=== PATIENT | female | born 1995 | race Caucasian/White ===

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

== ENCOUNTER 2017-01-12 23:17 | Emergency (ER) | payer SELFPAY ==
[2017-01-12 23:34] VITALS: BP 108/70; PULSE 57; RESP 20; TEMP 98.3; O2SAT 97
--- NOTE | 2017-01-13 00:10 | C.PDOC ---
History Of Present Illness Patient is a 21 year old female who presents to the ER with a complaint of light brown vaginal discharge w/ foul ordered for the past 3-4 weels. Patient notes her period ended 2 days ago and denies itching, vaginal pain, abdominal pain or dysuria. Time Seen by Provider: 01/12/17 23:40 Chief Complaint (Nursing): Female Genitourinary History Per: Patient History/Exam Limitations: no limitations Onset/Duration Of Symptoms: Days (3-4 weeks) Current Symptoms Are (Timing): Still Present Quality Of Discomfort: Other (No pain) Associated Symptoms: Other ((+) vaginal discharge. (-) for itching, vaginal pain , abdominal pain ). denies: Urinary Symptoms Alleviating Factors: None Recent travel outside of the [place]: No Abnormal Vaginal Bleeding: No Past Medical History Reviewed: Historical Data, Nursing Documentation, Vital Signs Vital Signs: Last Vital Signs Temp 98.3 F 01/12/17 23:30 Pulse 57 L 01/12/17 23:30 Resp 20 01/12/17 23:30 BP 108/70 01/12/17 23:30 Pulse Ox 97 01/13/17 06:05 - Medical History PMH: No Chronic Diseases Surgical History: No Surg Hx Family History: States: Unknown Family Hx - Social History Hx Alcohol Use: No Hx Substance Use: No - Immunization History Hx Influenza Vaccination: Yes Review Of Systems Gastrointestinal: Negative for: Abdominal Pain Genitourinary: Positive for: Vaginal Discharge. Negative for: Dysuria, Pelvic Pain Skin: Negative for: Other (Itching) Physical Exam - Physical Exam Appears: Non-toxic, No Acute Distress Skin: Normal Color, Warm, Dry Head: Atraumatic, Normacephalic Eye(s): bilateral: Normal Inspection, PERRL, EOMI Oral Mucosa: Moist Chest: Symmetrical, No Tenderness Cardiovascular: Rhythm Regular, No Friction Rub, No Murmur Respiratory: Normal Breath Sounds, No Rales, No Rhonchi, No Wheezing Gastrointestinal/Abdominal: Soft, No Tenderness Pelvic: Normal External Exam, No Vaginal Bleeding, No Cervical Motion Tenderness , No Adnexal Tenderness, Other (Scant brown discharge, malodorous.) Extremity: Normal ROM, No Tenderness, No Swelling ED Course And Treatment O2 Sat by Pulse Oximetry: 97 (Room air) Pulse Ox Interpretation: Normal Progress Note: Flagyl administered. Disposition - Disposition [facility]errals: [facility] [Outside] [facility] [Outside] Disposition: HOME/ ROUTINE Disposition Time: 00:35 Condition: GOOD Additional Instructions: Follow up with the medical doctor within 1-2 days. return if worsened. Prescriptions: metroNIDAZOLE [Flagyl] 500 mg PO BID #14 tab Instructions: Bacterial Vaginosis (ED) - Clinical Impression Clinical Impression: Bacterial vaginosis - Scribe Statement The provider has reviewed the documentation as recorded by the Scribelvis Méndez All medical record entries made by the Alirioibelvis were at my direction and personally dictated by me. I have reviewed the chart and agree that the record accurately reflects my personal performance of the history, physical exam, medical decision making, and the department course for this patient. I have also personally directed, reviewed, and agree with the discharge instructions and disposition.
[2017-01-13 00:28] LABS: RBC URINE 2 /hpf (0-3); URINE BILIRUBIN NEGATIVE (NEGATIVE); URINE BLOOD NEGATIVE (NEGATIVE); URINE COLOR Yellow (YELLOW); URINE GLUCOSE (UA) NORMAL (Normal); URINE KETONE NEGATIVE (NEGATIVE); URINE LEUKOCYTE ESTERASE NEG Leu/uL (Negative); URINE PROTEIN NEGATIVE (NEGATIVE); URINE UROBILINOGEN NORMAL mg/dL (0.2-1.0); WBC URINE 1 /hpf (0-5)
== END 2017-01-13 00:39 | disposition home or self-care (01) ==
LOC: C.ER 23:17
DX: N76.0 Acute vaginitis (principal)

== ENCOUNTER 2017-03-21 20:58 | Emergency (ER) | payer SELFPAY ==
[2017-03-21 21:12] VITALS: BP 115/70; PULSE 66; RESP 16; TEMP 97.4; O2SAT 99
--- NOTE | 2017-03-21 21:31 | C.PDOC ---
History Of Present Illness 22 y/o female presents to the ER c/o irritation and swelling to the left side of the labia for 3 days. Patient notes having unprotected sexual intercourse a month prior. Symptom is described as itchy and painful at the same time with whitish discharge that has a foul odor. Denies dysuria, menstrual irregularities , fever, chills, nausea, vomiting, abdominal pain, or any other complaints. Time Seen by Provider: 03/21/17 21:18 Chief Complaint (Nursing): Female Genitourinary History Per: Patient History/Exam Limitations: no limitations Onset/Duration Of Symptoms: Days (3) Current Symptoms Are (Timing): Still Present Severity: Mild Quality Of Discomfort: Other (Irritation and swelling) Associated Symptoms: denies: Fever, Chills, Nausea, Vomiting Recent travel outside of the [place]: No Additional History Per: Patient Past Medical History Reviewed: Historical Data, Nursing Documentation, Vital Signs Vital Signs: Last Vital Signs Temp 97.4 F L 03/21/17 21:08 Pulse 66 03/21/17 21:08 Resp 16 03/21/17 21:08 BP 115/70 03/21/17 21:08 Pulse Ox 99 03/21/17 21:51 Family History: States: Unknown Family Hx - Social History Hx Alcohol Use: Yes Hx Substance Use: No - Immunization History Hx Influenza Vaccination: Yes Review Of Systems Except As Marked, All Systems Reviewed And Found Negative. Constitutional: Negative for: Fever, Chills Gastrointestinal: Negative for: Nausea, Vomiting, Abdominal Pain Genitourinary: Positive for: Vaginal Discharge. Negative for: Dysuria Physical Exam - Physical Exam Appears: Non-toxic, No Acute Distress Skin: Warm, Dry Head: Atraumatic, Normacephalic Gastrointestinal/Abdominal: Soft, No Tenderness Back: Normal Inspection, No CVA Tenderness Pelvic: No Vaginal Bleeding, No Vaginal Discharge, No Cervical Motion Tenderness , No Other (No swelling or lesion of the labium) Neurological/Psych: Oriented x3, Normal Speech, Normal Cognition ED Course And Treatment O2 Sat by Pulse Oximetry: 99 (RA) Pulse Ox Interpretation: Normal Progress Note: Vaginal cultures sent Medical Decision Making Medical Decision Making: Impression: 22 y/o female c/o irritation and swelling to the left side of the labia for 3 days. Plans: * Chlamydia/GC * Culture/GC Disposition - Disposition Referrals: [facility] at [facility] [Outside] Disposition: HOME/ ROUTINE Disposition Time: 21:30 Condition: STABLE Additional Instructions: Follow up with your sales professional if symptoms persist. Instructions: Vaginitis (ED) Forms: [employer] (Iraqi) - Clinical Impression Clinical Impression: Vaginitis - Scribe Statement The provider has reviewed the documentation as recorded by the Scribe Ruth french All medical record entries made by the Scribe were at my direction and personally dictated by me. I have reviewed the chart and agree that the record accurately reflects my personal performance of the history, physical exam, medical decision making, and the department course for this patient. I have also personally directed, reviewed, and agree with the discharge instructions and disposition.
== END 2017-03-21 21:37 | disposition home or self-care (01) ==
LOC: C.ER 20:58
DX: N76.0 Acute vaginitis (principal)

== ENCOUNTER 2017-06-30 13:52 | Emergency (ER) | payer OTHER ==
[2017-06-30 14:20] VITALS: BMI 27.6
[2017-06-30 14:23] VITALS: RESP 18
[2017-06-30] MEDS ORDERED: Lactated Ringer's 1,000 ML IV STA ×2 (14:53→14:55)
[2017-06-30 15:16] LABS: BASO % 0.3 % (0.0-2.0); EOS % 0.1 % (0.0-4.0); HEMATOCRIT 43.9 % (34.0-47.0); LYMPH # 2.1 K/uL (1.0-4.3); LYMPH % 22.5 % (20.0-40.0); MEAN CELL VOLUME 89.4 fL (81.0-99.0); MEAN CORPUSCULAR HEMOGLOBIN 30.2 pg (27.0-31.0); MEAN CORPUSCULAR HGB CONC 33.8 g/dL (33.0-37.0); MEAN PLATELET VOLUME 9.3 fL (7.2-11.7); MONO # 0.3 K/uL (0.0-0.8); MONO % 3.5 % (0.0-10.0); RED CELL DISTRIBUTION WIDTH 12.6 % (11.5-14.5); WHITE BLOOD COUNT 9.4 K/uL (4.8-10.8)
[2017-06-30] MEDS ORDERED: Sodium Chloride 0.9% 1,000 ML ONE (15:17)
[2017-06-30 15:30] LABS: ALB/GLOB RATIO 1.3 (1.0-2.1); ALKALINE PHOSPHATASE 80 U/L (38-126); ALT/SGPT 29 U/L (9-52); AST/SGOT 19 U/L (14-36); BILIRUBIN,TOTAL 0.8 mg/dL (0.2-1.3); BLOOD UREA NITROGEN 12 mg/dL (7-17); CALCIUM 8.8 mg/dl (8.6-10.4); CARBON DIOXIDE 25 mmol/L (22-30); CHLORIDE 106 mmol/L (98-107); GFR AFRICAN-AMERICAN > 60; GLUCOSE,RANDOM 109 mg/dL (65-105); POTASSIUM 3.9 mmol/L (3.6-5.2); SODIUM 142 mmol/L (132-148); TOTAL PROTEIN 8.1 g/dL (6.3-8.3)
[2017-06-30] MEDS ORDERED: Lactated Ringer's 1,000 ML ONE (16:03)
[2017-06-30 16:37] VITALS: BP 100/63; PULSE 75; TEMP 98; O2SAT 97
--- NOTE | 2017-06-30 17:16 | C.PDOC ---
History Of Present Illness 22 y/o female presents to the ED c/o mild diffuse abdominal pain for 2 days and 2 episodes of vomiting today. The patient stated that she began to vomit after eating a burger in a [employer]. The boyfriend of the patient also states that after eating a couple of bites from the same began to feel nauseous after .The patient denies no blood in the vomit, dizziness, headaches, fever, and diarrhea. Chief Complaint (Nursing): Abdominal Pain History Per: Patient History/Exam Limitations: no limitations Onset/Duration Of Symptoms: Hrs Current Symptoms Are (Timing): Still Present Associated Symptoms: Nausea, Vomiting. denies: Fever, Chills, Diarrhea Past Medical History Reviewed: Historical Data, Nursing Documentation, Vital Signs Vital Signs: Last Vital Signs Temp 98 F 06/30/17 16:36 Pulse 75 06/30/17 16:36 Resp 18 06/30/17 16:36 BP 100/63 06/30/17 16:36 Pulse Ox 97 06/30/17 17:21 Surgical History: No Surg Hx Family History: States: No Known Family Hx - Social History Hx Alcohol Use: Yes Hx Substance Use: No - Immunization History Hx Tetanus Toxoid Vaccination: No Hx Influenza Vaccination: No Hx Pneumococcal Vaccination: No Review Of Systems Except As Marked, All Systems Reviewed And Found Negative. Constitutional: Negative for: Fever, Chills Cardiovascular: Negative for: Chest Pain Respiratory: Negative for: Cough, Shortness of Breath Gastrointestinal: Positive for: Nausea, Vomiting, Abdominal Pain. Negative for : Diarrhea, Constipation Skin: Negative for: Rash Physical Exam - Physical Exam Appears: Non-toxic, No Acute Distress Skin: Warm, Dry, No Rash Head: Atraumatic, Normacephalic Eye(s): bilateral: PERRL Oral Mucosa: Moist Neck: Supple Chest: Symmetrical Cardiovascular: Rhythm Regular Respiratory: Normal Breath Sounds, No Rales, No Rhonchi, No Wheezing Extremity: Normal ROM, Capillary Refill (2<sec.) Neurological/Psych: Oriented x3, Normal Speech, Normal Cognition Gait: Steady ED Course And Treatment - Laboratory Results Result Diagrams: 06/30/17 15:14 06/30/17 15:14 O2 Sat by Pulse Oximetry: 97 Medical Decision Making Medical Decision Making: IV fluids, Zofran, Blood work, and Pepcid were administered. Disposition - Disposition Referrals: [facility], [Non-Staff] - Disposition: HOME/ ROUTINE Disposition Time: 15:30 Condition: IMPROVED Additional Instructions: Thank you for letting us take care of you today. The emergency medical care you received today was directed at your acute symptoms. If you were prescribed any medication, please fill it and take as directed. It may take several days for your symptoms to resolve. Return to the Emergency Department if your symptoms worsen, do not improve, or if you have any other problems. Please contact your doctor or call one of the physicians/clinics you have been referred to that are listed on the Patient Visit Information form that is included in your discharge packet. Bring any paperwork you were given at discharge with you along with any medications you are taking to your follow up visit. Our treatment cannot replace ongoing medical care by a primary care provider (PCP) outside of the emergency department. Thank you for allowing the [facility] team to be part of your care today. Follow up with your doctor in 2-3 days if you have any concerns. Instructions: Gastritis (ED) Forms: [employer] (Slovenian) - Clinical Impression Clinical Impression: Gastritis - Scribe Statement The provider has reviewed the documentation as recorded by the Scribe Kayla Looney All medical record entries made by the Scribe were at my direction and personally dictated by me. I have reviewed the chart and agree that the record accurately reflects my personal performance of the history, physical exam, medical decision making, and the department course for this patient. I have also personally directed, reviewed, and agree with the discharge instructions and disposition.
== END 2017-06-30 16:37 | disposition home or self-care (01) ==
LOC: C.ER 13:52
DX: K29.70 Gastritis, unspecified, without bleeding (principal)
CPT/HCPCS: 80053; 83690; 85025; 96361; 96374; 96375; 99285; J2405; J7120

== ENCOUNTER 2017-08-07 12:52 | Emergency (ER) | payer SELFPAY ==
[2017-08-07 12:52] VITALS: BMI 27.6
[2017-08-07 13:47] VITALS: RESP 20
--- NOTE | 2017-08-07 14:11 | C.PDOC ---
History Of Present Illness 22 year old female presents to the ED for evaluation of persistent headache x 3 weeks. Patient states symptoms are intermittent and around her right temporal area. She reports nausea. Patient was supposed to be given "headache medicine from her prior ER visit but never received it. Patient denies history of migraines. Has no PMD evaluation for the same. Patient denies fever or any other associated symptoms at this time. PERSIST NOLAND X 3 WEEKS. INTERMIT, R TEMPORAL AREA. +NAUSEA. PS WAS SUPPOSED TO BE GIVEN A "HEADACHE MEDICINE" FROM PRIOR ER VISIT BUT NEVER RECEIVED IT. DENIES HO MIGRAINE. NO PMD EVAL FOR SAME. NO FEVER, OTHER ASSOC SX EXAM NONTOXIC HEENT NO PHOTOPHOBIA NO VISION CHANGE NONTEND GAIT WNL NEURO NO FOCAL DEF NECK SUPPLE REMIANDER NEG Chief Complaint (Nursing): Headache History Per: Patient History/Exam Limitations: no limitations Onset/Duration Of Symptoms: Persistent, Other (3 weeks ) Current Symptoms Are (Timing): Still Present Quality: Aching Preceeding Symptoms: denies: Known Migraine Symptoms Associated Symptoms: Nausea Additional History Per: Patient Past Medical History Reviewed: Historical Data, Nursing Documentation, Vital Signs Vital Signs: Last Vital Signs Temp 98.8 F 08/07/17 17:01 Pulse 118 H 08/07/17 17:01 Resp 20 08/07/17 17:01 BP 110/66 08/07/17 17:01 Pulse Ox 99 08/07/17 17:01 - Medical History PMH: No Chronic Diseases Surgical History: No Surg Hx Family History: States: Unknown Family Hx - Social History Hx Alcohol Use: Yes Hx Substance Use: No - Immunization History Hx Tetanus Toxoid Vaccination: No Hx Influenza Vaccination: No Hx Pneumococcal Vaccination: No Review Of Systems Constitutional: Negative for: Fever, Chills Gastrointestinal: Positive for: Nausea Neurological: Positive for: Headache (right temporal area ) Physical Exam - Physical Exam Appears: Non-toxic, No Acute Distress Skin: Normal Color, Warm, Dry Head: Atraumatic, Normacephalic, No Tenderness Eye(s): bilateral: Normal Inspection, Other (no photophobia or vision change ) Oral Mucosa: Moist Neck: Supple Chest: Symmetrical, No Deformity, No Tenderness Cardiovascular: Rhythm Regular, No Murmur Respiratory: Normal Breath Sounds, No Rales, No Rhonchi, No Wheezing Extremity: Normal ROM, Capillary Refill (less than 2 seconds) Neurological/Psych: Oriented x3, Normal Speech, Normal Cognition, Other (no focal deficits ) Gait: Steady ED Course And Treatment - Laboratory Results Result Diagrams: 08/07/17 14:43 08/07/17 14:43 Urine POC: Negative O2 Sat by Pulse Oximetry: 100 (on RA ) Pulse Ox Interpretation: Normal Progress Note: Bloodwork and CT Head ordered and reviewed. Imitrex SC, Reglan IVP, Toradol IVP, Tylenol PO, and IV fluids. Reevaluation Time: 17:09 Reassessment Condition: Improved Disposition Counseled Patient/Family Regarding: Studies Performed, Diagnosis, Need For Followup, Rx Given - Disposition Referrals: Og Rowan MD [Staff Provider] - Disposition: HOME/ ROUTINE Disposition Time: 17:09 Condition: IMPROVED Prescriptions: Metoclopramide [Reglan] 1 tab PO TID PRN #25 tab PRN Reason: Nausea/Vomiting Instructions: Tension Headache (ED) Forms: [employer] (Albanian) - Clinical Impression Clinical Impression: Headache - Scribe Statement The provider has reviewed the documentation as recorded by the Scribe (Nika Quinones) Provider Attestation: All medical record entries made by the Scribe were at my direction and personally dictated by me. I have reviewed the chart and agree that the record accurately reflects my personal performance of the history, physical exam, medical decision making, and the department course for this patient. I have also personally directed, reviewed, and agree with the discharge instructions and disposition.
[2017-08-07] MEDS ORDERED: Sodium Chloride 0.9% 1,000 ML IV STA (14:12)
[2017-08-07] MEDS ORDERED: Sodium Chloride 0.9% 1,000 ML ONE (14:22)
[2017-08-07 14:46] LABS: BASO % 0.3 % (0.0-2.0); EOS % 0.1 % (0.0-4.0); HEMOGLOBIN 13.8 g/dL (11.0-16.0); LYMPH # 1.9 K/uL (1.0-4.3); LYMPH % 13.2 % (20.0-40.0); MEAN CELL VOLUME 89.8 fL (81.0-99.0); MEAN CORPUSCULAR HEMOGLOBIN 30.3 pg (27.0-31.0); MEAN CORPUSCULAR HGB CONC 33.7 g/dL (33.0-37.0); MEAN PLATELET VOLUME 8.8 fL (7.2-11.7); MONO # 0.6 K/uL (0.0-0.8); MONO % 3.9 % (0.0-10.0); NEUT % 82.5 % (50.0-75.0); RBC 4.55 Mil/uL (3.80-5.20); RED CELL DISTRIBUTION WIDTH 12.8 % (11.5-14.5); WHITE BLOOD COUNT 14.6 K/uL (4.8-10.8)
[2017-08-07 14:59] LABS: BLOOD UREA NITROGEN 10 mg/dL (7-17); CALCIUM 8.7 mg/dl (8.6-10.4); GFR AFRICAN-AMERICAN > 60; GFR NON-AFRICAN AMERICAN > 60
--- NOTE | 2017-08-07 15:33 | CT ---
PROCEDURE: CT HEAD WITHOUT CONTRAST. HISTORY: Headache COMPARISON: None available. TECHNIQUE: Axial computed tomography images were obtained through the head/brain without intravenous contrast. Radiation dose: Total exam DLP = 796.55 mGy-cm. This CT exam was performed using one or more of the following dose reduction techniques: Automated exposure control, adjustment of the mA and/or kV according to patient size, and/or use of iterative reconstruction technique. FINDINGS: HEMORRHAGE: No intracranial hemorrhage. BRAIN: No mass effect or edema. No atrophy or chronic microvascular ischemic changes. VENTRICLES: No hydrocephalus. CALVARIUM: Unremarkable. PARANASAL SINUSES: Unremarkable as visualized. No significant inflammatory changes. MASTOID AIR CELLS: Unremarkable as visualized. No inflammatory changes. OTHER FINDINGS: None. IMPRESSION: No acute intracranial pathology identified.
[2017-08-07 17:02] VITALS: BP 110/66; PULSE 118; TEMP 98.8
[2017-08-07 17:10] VITALS: O2SAT 100
== END 2017-08-07 17:24 | disposition home or self-care (01) ==
LOC: C.ER 12:52
DX: R51 Headache (principal)
CPT/HCPCS: 70450; 80048; 85025; 96361; 96372; 96374; 96375; 99284; J1885; J2765; J3030; J7040